=== PATIENT | female | born 1955 | race Caucasian/White ===

== ENCOUNTER → 2023-05-19 14:00 | Outpatient (REF) | payer MEDICARE, OTHER, SELFPAY | LOC: HWRAD 14:00 | PROVIDERS: ATTENDING PHYSICIAN Obstetrics & Gynecology; FAMILY PHYSICIAN Physician Assistant | DX: R10.2 Pelvic and perineal pain (principal) | CPT/HCPCS: 76830; 76856 ==

== ENCOUNTER 2023-09-24 17:21 | Emergency (ER) | payer MEDICARE, OTHER, SELFPAY ==
[2023-09-24] VITALS (7 sets, daily range): BP systolic 134–168; BP diastolic 80–129; BMI 22.5
--- NOTE | 2023-09-24 19:27 | ED.GENMED ---
History of Present Illness
General
Chief Complaint: Cough
Source: patient
Exam Limitations: none
Time Seen by Provider: 09/24/23 18:42
Nursing documentation reviewed up to this point in time: agreed with
Travel History
Have you had any contact with someone who has COVID-19?: No
Do you have any symptoms of coronavirus? Fever > 100 degrees, chills, cough, shortness of breath, sore throat, loss of taste or smell, muscle aches, or headache?: No
History of Present Illness
History of Present Illness:
68 y/o F with h/o bronchiectasis, HTN, hld
followed by dr. luna from pul
says that about 5 weeks ago started not feeling well, coughing with mucus, fatigue
she ended up garo to her pcp on 09/07 and was prescrbied augmentin and steroid taper
she was confused by the steorid taper which was supposed to be 40 x 3, 30 x 3, etc
she got it corrected and then finished it last week
within this time frame the past 2 weeks, she also saw her pulmonolgoist dr. luna who tested her sputum and she grew out pseudomonas
she was treated with tobramycin INH bid x 10 days
she completed that course and still the past 2-3 days having junky cough and not feeling well
called her pulm who added another course of tobra but wanted her to have CXR
she had the CXR today and was called within afew hours saying she had pneumonia and to come to the hospital
now she feels some chills
she feels shortness of breath but denies chest pain
Past History
Past History
ED Past Medical History: GERD and Other (She status post uterine and bladder prolapse, neck pain with recent epidural, hypertension)
ED Past Surgical History: None
Social History
Tobacco: Non-smoker
Alcohol: None
Drug: None
Personal:
Living: with family
Employment: Employed
Family History
Family History: Negative Early CAD or Sudden
Review of Systems
Review of Systems
Allergies reviewed?: Yes
All Other Systems: Not applicable
Phy Exam
Physical Exam
Physical Exam:
GENERAL: Alert , in no apparent distress no respiratory distress
EYE: pupils equal and reactive
NECK: Supple
ENT: o/p clr, mmm.
CARDIAC: Regular rate and rhythm .
LUNGS: rhonchi throughout; no wheezing, no tachypnea, no resp distress;
ABDOMEN: Soft, without focal tenderness, no r/g, no cvat, normal bowel sounds
NEUROLOGICAL: Alert and oriented, no focal neuro deficits
SKIN: Warm and dry, skin intact.
MUSCULOSKELETAL: No edema, well perfused. neg michelle's sign
PSYCH: Normal and appropriate interaction.
Course
Orders/Labs/Results
Orders:
Orders
09/24/23 19:34
Complete Blood Count/With Diff Urgent
Comprehensive Metabolic Panel Urgent
Lactic Acid Q4H
Comment: CANCEL 2nd LACTIC ACID IF 1st LACTIC ACID IS LESS THAN 2
Blood Culture Q30M
ADONAY Source: Blood/Venous
Specimen Description:
Blood Culture Q30M
ADONAY Source: Blood/Venous
Specimen Description:
09/24/23 19:55
Electrocardiogram (*1) Urgent
Reason for Study: QTc Monitoring
EKG- Treatment ONCE
09/24/23 21:13
LevoFLOXacin [Levaquin] 750 mg PO NOW STA
09/24/23 23:04
Respiratory Culture/Gram Stain Urgent
ADONAY Source: Sputum - Induced
Specimen Description:
Date Specimen was Collected: 09/24/23
Time Specimen was Collected: 19:22
Abnormal Lab Results
09/24/23
19:34
WBC 4.6 L 10^3/uL
(4.8-10.8)
RBC 4.06 L 10^6/uL
(4.20-5.40)
Hct 36.3 L %
(37.0-47.0)
Monocytes % 9.5 H %
(1.7-9.3)
Glucose 112 H mg/dl
(70-99)
09/24/23 19:34
09/24/23 19:34
Vital Signs
Initial and Last Documented VS:
Initial Vital Signs
Temp Pulse Resp BP Pulse Ox
99.2 F 85 18 134/80 96
09/24/23 17:24 09/24/23 17:24 09/24/23 17:24 09/24/23 17:24 09/24/23 17:24
Last Documented Vital Signs
Temp Pulse Resp BP Pulse Ox
99.4 F 65 26 161/91 96
09/24/23 22:20 09/24/23 22:20 09/24/23 22:20 09/24/23 23:00 09/24/23 22:51
MDM/Problems Addressed
Differential Diagnosis Includes:
Pneumonia, bronchiectasis, reactive airway,
MDM/Problems Addressed:
68-year-old female with a history of bronchiectasis followed by pulmonary said 4 to 5 weeks of a cough worsening than her baseline. She was treated with Augmentin and a prednisone taper initially by her primary and then out 2 weeks ago saw her
van owner operator who put her on tobramycin inhaled twice daily x 10 days after she had a sputum culture that was positive for Pseudomonas. Patient completed the course of tobra but still feels sick and had some chills so she got outpatient CXR today
and it shows subtle pna
pt overall doesn't feel sob more than usual and other than feeling fatigued doesn't feel overly ill
no hemotpysis
on exam initial temp borderline, repeat normal
normal room air pulse ox
rhonchi throughout
no resp distress
no vomiting/diarrhea
wbc normal
cmp normal
sputum culture attempted but pt difficult to obtain
will try leukens
d/w dr. torres telecommunications cable jointer for dr. luna
who recommended levaquin if pt can tolerate 750 mg daily x 10 days
pt's qtc ok
d/w pharmacy, only drug interaction is ibuprofen and calcium which we can hold
offered admission
pt wouud like to go home
attempt sputum culture and d/dc
*Critical Care Note
Total Time (30-74mins, 75-104mins- exclusive of procedures): Not Applicable
ED Attending Note
-
Portions of this chart may have been created with voice recognition software.� Occasional wrong word or��sound alike� substitutions may have occurred due to the inherent limitations of voice recognition software.
Discharge Plan
Departure
Patient Disposition: Home (Routine Discharge)
Date of Disposition: 09/24/23
Time of Disposition: 22:00
Patient with high blood pressure during this ER visit?: No
Condition: Fair
Covid-19: Not Applicable
Discharge Problem:
Pneumonia
Instructions: Pneumonia, Adult (DC)
Prescriptions:
New
levofloxacin 750 mg tablet
750 mg PO DAILY Qty: 10 0RF
No Action
levothyroxine 50 mcg Tablet
50 mcg PO DAILY
pantoprazole 40 mg Tablet,Delayed Release (Dr/Ec)
40 mg PO DAILY
lisinopril 10 mg Tablet
10 mg PO DAILY
ibuprofen 200 mg Tablet
400 mg PO TIDPRN PRN (Reason: mild pain)
budesonide 0.5 mg/2 mL Suspension For Nebulization
0.5 mg INHALATION .R NOON
raloxifene 60 mg Tablet
60 mg PO DAILY
azelastine 137 mcg (0.1 %) Aerosol,[place]
1 spray INTRANASAL HS
albuterol sulfate 90 mcg/actuation Hfa Aerosol Inhaler
1 puff INHALATION R HSPRN PRN (Reason: sob)
fluticasone propionate 50 mcg/actuation [place],Suspension
2 spray INTRANASAL DAILY
fluticasone propionate [Flovent HFA] 110 mcg/actuation Hfa Aerosol Inhaler
1 puff INHALATION R BID
carboxymethylcellulose sodium [Refresh] 1 % Drops, Liquid Gel
1 drp BOTH EYES HS
duloxetine 20 mg capsule,delayed release(DR/EC)
20 mg PO BID
levocetirizine [Xyzal] 5 mg Tablet
5 mg PO HS
omega 5-yqz-vgv-fish oil [Fish Oil] 1,000 mg (120 mg-180 mg) Capsule
1 cap PO DAILY
tobramycin with nebulizer 300 mg/5 mL Solution For Nebulization
300 mg INHALATION R BID
Patient Comments:
09/24/2023, prescribed for 10 days; per pt., her PCP just increased duration by another 10 days starting today.
Calcium + D
1 tab PO DAILY
Patient Comments:
09/24/2023, 315 mg of Calcium and 200 units of vitamin D.
Vitamin C
2 tab PO DAILY
cholecalciferol (vitamin D3)
2 tab PO DAILY
albuterol sulfate 2.5 mg /3 mL (0.083 %) Solution For Nebulization
2.5 mg INHALATION R BIDPRN PRN (Reason: sob)
Referrals:
UNKNOWN - PT DOES,NOT KNOW [Family Provider] -
Activity Restrictions/Additional Instructions:
Grader Tender on-call for Dr. luna recommended that you take Levaquin 750 mg once a day for 10 days. We highly encourage you to follow-up with the van owner operator next week. Should you get any worsening symptoms like higher fevers, shortness of
breath, chest pain, severe fatigue etc. return to the ER for admission. You need to avoid exercise and strenuous activity or lifting suddenly because Levaquin as a side effect can potentially cause tendon rupture spontaneously. It is only while
you are on the medication. Also the pharmacist recommended that you hold the calcium that you take and avoid ibuprofen while you are on this medication for now.
Interventions
Interventions:
*Risk Screen - Suicide Last Done: 09/24/23 19:50
*General Assessment Last Done: 09/24/23 19:50
*Neglect/Abuse Screening Last Done: 09/24/23 19:50
ED- Fall Risk Assessment Last Done: 09/24/23 18:58
*ED COVID-19 Vaccine History Last Done: 09/24/23 19:50
*Nursing Disposition Last Done: 09/24/23 23:17
ED- Pulmonary Assessment Last Done: 09/24/23 19:50
Discharge Date and Time
Discharge Date/Time: 09/24/23 23:17
Print Language: KYRGYZ
[2023-09-24 19:44] LABS: % Basophils 0.4 % (0-2); % Eosinophils 2.4 % (0-6); % Immature Granulocytes 0.4 % (0-0.5); % Lymphocytes 35.1 % (20.5-51.1); % Monocytes 9.5 % (1.7-9.3); % Neutrophils 52.2 % (42.2-75.2); Absolute Eosinophils 0.1 10^3/uL (0-0.7); Absolute Lymphocytes 1.6 10^3/uL (1.2-3.4); Absolute Monocytes 0.4 10^3/uL (0.1-0.6); Absolute Neutrophils 2.4 10^3/uL (1.4-6.5); Hematocrit 36.3 % (37.0-47.0); Hemoglobin 12.3 g/dL (12.0-16.0); Mean Corp Hgb Conc. 33.9 g/dL (33.0-37.0); Mean Corpuscular Hgb 30.3 pg (27.0-31.0); Mean Corpuscular Volume 89.4 fL (81.0-99.0); Mean Platelet Volume 9.2 fL (7.4-10.4); Nucleated Red Blood Cells % 0 %; Platelet Count 277 10^3/uL (130-400); Red Blood Cell Count 4.06 10^6/uL (4.20-5.40); Red Cell Dist. Width 13.8 % (11.5-14.5); White Blood Cell Count 4.6 10^3/uL (4.8-10.8)
[2023-09-24 19:59] LABS: ALT (SGPT) 22 U/L (0-35); AST (SGOT) 26 U/L (14-36); Alkaline Phosphatase 90 U/L (38-126); Blood Urea Nitrogen 13 mg/dl (7-17); Calcium 9.7 mg/dl (8.4-10.2); Carbon Dioxide 26 mmol/L (22-30); Chloride 105 mmol/L (98-107); Estimated Creatinine Clearance 64 ml/min; Glucose 112 mg/dl (70-99); Potassium 3.9 mmol/L (3.5-5.1); Sodium 137 mmol/L (135-145); Total Bilirubin 0.4 mg/dl (0.2-1.3); Total Protein 6.6 g/dl (6.3-8.2); eGFR > 60.00
[2023-09-24] MEDS: LEVAQUIN 750 MG PO (22:10)
== END 2023-09-24 23:17 | disposition home or self-care (01) ==
LOC: EMR 17:21
PROVIDERS: Physician Assistant; EMERGENCY PHYSICIAN Emergency Medicine
DX: J18.9 Pneumonia, unspecified organism (principal); I10 Essential (primary) hypertension; E78.5 Hyperlipidemia, unspecified; K21.9 Gastro-esophageal reflux disease without esophagitis; E03.9 Hypothyroidism, unspecified; F41.9 Anxiety disorder, unspecified; F32.A Depression, unspecified; Z88.1 Allergy status to other antibiotic agents; Z88.2 Allergy status to sulfonamides
CPT/HCPCS: 99283; 71046; 80053; 83605; 85025; 87040; 87070; 87205; 93005

== ENCOUNTER → 2023-10-21 14:07 | Outpatient (REF) | payer MEDICARE, OTHER, SELFPAY | LOC: HWRAD 14:07 | PROVIDERS: ATTENDING PHYSICIAN Nurse Practitioner Family; FAMILY PHYSICIAN Physician Assistant | DX: Z87.01 Personal history of pneumonia (recurrent) (principal) | CPT/HCPCS: 71046 ==

== ENCOUNTER → 2024-06-09 13:54 | Outpatient (REF) | payer MEDICARE, OTHER, SELFPAY | LOC: HWRAD 13:54 | PROVIDERS: ATTENDING PHYSICIAN Physician Assistant | DX: J40 Bronchitis, not specified as acute or chronic (principal) | CPT/HCPCS: 71046 ==

== ENCOUNTER → 2024-12-09 11:20 | Outpatient (REF) | payer MEDICARE, OTHER, SELFPAY | LOC: HWRAD 11:20 | PROVIDERS: ATTENDING PHYSICIAN Physician Assistant; REFERRING PHYSICIAN Internal Medicine Critical Care Medicine | DX: J06.9 Acute upper respiratory infection, unspecified (principal) | CPT/HCPCS: 71046 ==

== ENCOUNTER 2025-01-05 20:20 | Emergency (ER) | payer MEDICARE, OTHER, SELFPAY ==
[2025-01-05 20:26] VITALS: BP 142/89
[2025-01-05 20:57] LABS: Hematocrit 41.2 % (37.0-47.0); Hemoglobin 13.7 g/dL (12.0-16.0); Mean Corp Hgb Conc. 33.3 g/dL (33.0-37.0); Mean Corpuscular Volume 92.6 fL (81.0-99.0); Nucleated Red Blood Cells % 0 %; Platelet Count 223 10^3/uL (130-400); Red Cell Dist. Width 13.4 % (11.5-14.5)
[2025-01-05 21:04] LABS: Urine Character Clear (Clear)
[2025-01-05 21:10] LABS: ALT (SGPT) 25 U/L (0-35); AST (SGOT) 30 U/L (14-36); Albumin 4.3 g/dl (3.5-5.0); Alkaline Phosphatase 78 U/L (38-126); Blood Urea Nitrogen 12 mg/dl (7-17); Calcium 9.0 mg/dl (8.4-10.2); Carbon Dioxide 30 mmol/L (22-30); Chloride 103 mmol/L (98-107); Glucose 94 mg/dl (70-99); Lipase 33 U/L (23-300); Potassium 3.8 mmol/L (3.5-5.1); Sodium 137 mmol/L (135-145); Total Protein 6.8 g/dl (6.3-8.2); eGFR > 60.00
[2025-01-05 22:11] LABS: Urine Red Blood Cell 0-2 /HPF (0-2); Urine Squamous Cell >30 /LPF (Few)
[2025-01-05] MEDS: OMNIPAQUE 50 ML PO (23:45)
[2025-01-05] MEDS: ZOFRAN 4 MG IV (23:51)
[2025-01-05 23:54] VITALS: BP 150/85
[2025-01-06] VITALS: BP 137/78
--- NOTE | 2025-01-06 03:05 | ED.GENMED ---
History of Present Illness
<Ken De León Jr., PA-C - Last Filed: 01/06/25 03:18>
General
Chief Complaint: Abdominal Pain
Source: patient
Exam Limitations: none
Time Seen by Provider: 01/05/25 23:06
Nursing documentation reviewed up to this point in time: agreed with
History of Present Illness
History of Present Illness:
70-year-old female presenting to the emergency department today with concerns of vague abdominal pain associated diarrhea. Had a CT scan earlier in the day that showed colitis. She was recently on antibiotics for UTI. Denies any fevers chest pain
shortness of breath.
Past History
<Ken De León Jr., PA-C - Last Filed: 01/06/25 03:18>
Past History
ED Past Medical History: GERD and Other (She status post uterine and bladder prolapse, neck pain with recent epidural, hypertension)
ED Past Surgical History: None
Social History
Tobacco: Non-smoker
Alcohol: None
Drug: None
Personal:
Living: with family
Employment: Employed
Family History
Family History: Negative Early CAD or Sudden
Review of Systems
<Ken De León Jr., PA-C - Last Filed: 01/06/25 03:18>
Review of Systems
Allergies reviewed?: Yes
All Other Systems: ROS reviewed and negative except as documented in HPI and ROS
Phy Exam
<Ken De León Jr., PA-C - Last Filed: 01/06/25 03:18>
Physical Exam
Physical Exam:
GENERAL: Alert , in no apparent distress
EYE: pupils equal and reactive
NECK: Supple, no significant adenopathy.
ENT: o/p clr, mmm.
CARDIAC: Regular rate and rhythm .
LUNGS: Clear breath sounds bilaterally, no acute respiratory distress, no wheezes/rales/rhonchi
ABDOMEN: vague abdominal pain to palpation
NEUROLOGICAL: Alert and oriented, no focal neuro deficits
SKIN: Warm and dry, skin intact.
MUSCULOSKELETAL: No edema, well perfused.
PSYCH: Normal and appropriate interaction.
Course
<Ken De León Jr., LIVIA-Eileen - Last Filed: 01/06/25 03:18>
Orders/Labs/Results
Orders:
Orders
01/05/25 20:28
IV Insert/Care/Rem.- Treatment PRN
Straight cath- Treatment ONCE
01/05/25 20:34
Urinalysis Reflex To Culture Urgent
Date Specimen was Collected: 01/05/25
Time Specimen was Collected: 20:28
Urine Microscopic Reflex Cult Urgent
Urine Culture Urgent
ADONAY Source: U
Specimen Description:
Date Specimen was Collected: 01/05/25
Time Specimen was Collected: 20:28
01/05/25 20:37
Complete Blood Count/With Diff Urgent
Comprehensive Metabolic Panel Urgent
Lipase Urgent
01/05/25 23:25
C DIFF [C difficile Antigen & Toxins] Urgent
ADONAY Source: Feces/Stool
Specimen Description:
Date Specimen was Collected: 01/06/25
Time Specimen was Collected: 03:16
Stool Culture Urgent
ADONAY Source: Feces/Stool
Specimen Description:
Date Specimen was Collected: 01/06/25
Time Specimen was Collected: 03:16
Iohexol [Omnipaque] See Protocol PO NOW STA
01/05/25 23:50
Ondansetron Injectable [Zofran] 4 mg .ROUTE .STK-MED ONE
Ondansetron Injectable [Zofran] 4 mg IV NOW STA
01/06/25
CT Abd/Pel (IV only)-DH only Urgent
Reason For Exam: abd pain
Abnormal Lab Results
01/05/25 01/05/25
20:34 20:37
Absolute Monos (auto) 0.7 H 10^3/uL
(0.1-0.6)
Lymphocytes % 16.8 L %
(20.5-51.1)
Leukocyte Esterase Rfl 1+ A
(Negative)
Urine WBC (Reflex) 11-15 A /HPF
(0-5)
Urine Bacteria (Reflex) Few A
(Negative)
01/05/25 20:37
01/05/25 20:37
Vital Signs
Initial and Last Documented VS:
Initial Vital Signs
Temp Pulse Resp BP Pulse Ox
97.9 F 70 18 142/89 97
01/05/25 20:26 01/05/25 20:26 01/05/25 20:26 01/05/25 20:26 01/05/25 20:26
Last Documented Vital Signs
Temp Pulse Resp BP Pulse Ox
97.9 F 70 18 137/78 97
01/05/25 20:26 01/05/25 20:26 01/05/25 20:26 01/06/25 00:00 01/06/25 03:06
<Titi Mcclelland PA-C - Last Filed: 01/06/25 07:46>
Orders/Labs/Results
Orders:
Orders
01/05/25 20:28
IV Insert/Care/Rem.- Treatment PRN
Straight cath- Treatment ONCE
01/05/25 20:34
Urinalysis Reflex To Culture Urgent
Date Specimen was Collected: 01/05/25
Time Specimen was Collected: 20:28
Urine Microscopic Reflex Cult Urgent
Urine Culture Urgent
ADONAY Source: U
Specimen Description:
Date Specimen was Collected: 01/05/25
Time Specimen was Collected: 20:28
01/05/25 20:37
Complete Blood Count/With Diff Urgent
Comprehensive Metabolic Panel Urgent
Lipase Urgent
01/05/25 23:25
C DIFF [C difficile Antigen & Toxins] Urgent
ADONAY Source: Feces/Stool
Specimen Description:
Date Specimen was Collected: 01/06/25
Time Specimen was Collected: 03:16
Stool Culture Urgent
ADONAY Source: Feces/Stool
Specimen Description:
Date Specimen was Collected: 01/06/25
Time Specimen was Collected: 03:16
Iohexol [Omnipaque] See Protocol PO NOW STA
01/05/25 23:50
Ondansetron Injectable [Zofran] 4 mg .ROUTE .STK-MED ONE
Ondansetron Injectable [Zofran] 4 mg IV NOW STA
01/06/25
CT Abd/Pel (IV only)-DH only Urgent
Reason For Exam: abd pain
Abnormal Lab Results
01/05/25 01/05/25
20:34 20:37
Absolute Monos (auto) 0.7 H 10^3/uL
(0.1-0.6)
Lymphocytes % 16.8 L %
(20.5-51.1)
Leukocyte Esterase Rfl 1+ A
(Negative)
Urine WBC (Reflex) 11-15 A /HPF
(0-5)
Urine Bacteria (Reflex) Few A
(Negative)
01/05/25 20:37
01/05/25 20:37
Vital Signs
Initial and Last Documented VS:
Initial Vital Signs
Temp Pulse Resp BP Pulse Ox
97.9 F 70 18 142/89 97
01/05/25 20:26 01/05/25 20:26 01/05/25 20:26 01/05/25 20:26 01/05/25 20:26
Last Documented Vital Signs
Temp Pulse Resp BP Pulse Ox
97.9 F 70 18 137/78 97
01/05/25 20:26 01/05/25 20:26 01/05/25 20:26 01/06/25 00:00 01/06/25 03:06
<Ken De León Jr., PA-C - Last Filed: 01/06/25 03:18>
MDM/Problems Addressed
MDM/Problems Addressed:
70-year-old female presenting to the emergency department today with concerns of abdominal pain with associated diarrhea since yesterday. Here she had moderate colitis. She was recently on antibiotics raising the concern for C. difficile. No
white count no other emergent findings on labs. CT scan showing moderate colitis no signs of complications. Urine culture was able to be collected but patient stable for discharge at this time will be contacted if any abnormalities result.
<Ken De León Jr., PA-C - Last Filed: 01/06/25 03:18>
*Pulse Oximetry
SaO2: 97
Oxygen Mode of Delivery: Room air
<Titi Mcclelland PA-C - Last Filed: 01/06/25 07:46>
*Pulse Oximetry
Patient hypoxic: no
*Critical Care Note
Total Time (30-74mins, 75-104mins- exclusive of procedures): Not Applicable
<Titi Mcclelland PA-C - Last Filed: 01/06/25 07:46>
Update Note
Update Note:
7:45 AM January 06, 2025: Received notification from lab that patient C. difficile test came back positive. I contacted the patient via telephone and discussed these results with her. She was prescribed a new antibiotic for a urinary tract
infection yesterday. Advised patient discontinue the antibiotic at present time. Prescription for Dificid was sent to patient's pharmacy. I urged her to contact primary care provider's office to help with follow-up as well as discussed return
precautions to ER
ED Attending Note
<ROWENA Esquivel Jr. Last Filed: 01/06/25 03:18>
-
Portions of this chart may have been created with voice recognition software.� Occasional wrong word or��sound alike� substitutions may have occurred due to the inherent limitations of voice recognition software.
Discharge Plan
Departure
Patient Disposition: Home (Routine Discharge)
Date of Disposition: 01/06/25
Time of Disposition: 03:16
Patient with high blood pressure during this ER visit?: No
Condition: Good
Covid-19: Not Applicable
Discharge Problem:
Colitis
Instructions: Colitis (DC)
Prescriptions:
New
fidaxomicin [Dificid] 200 mg tablet
200 mg PO Q12H 10 Days Qty: 20 0RF
No Action
levothyroxine 50 mcg Tablet
50 mcg PO DAILY
pantoprazole 40 mg Tablet,Delayed Release (Dr/Ec)
40 mg PO DAILY
lisinopril 10 mg Tablet
10 mg PO DAILY
ibuprofen 200 mg Tablet
400 mg PO TIDPRN PRN (Reason: mild pain)
budesonide 0.5 mg/2 mL Suspension For Nebulization
0.5 mg INHALATION .R NOON
raloxifene 60 mg Tablet
60 mg PO DAILY
azelastine 137 mcg (0.1 %) Aerosol,[place]
1 spray INTRANASAL HS
albuterol sulfate 90 mcg/actuation Hfa Aerosol Inhaler
1 puff INHALATION R HSPRN PRN (Reason: sob)
fluticasone propionate 50 mcg/actuation [place],Suspension
2 spray INTRANASAL DAILY
fluticasone propionate [Flovent HFA] 110 mcg/actuation Hfa Aerosol Inhaler
1 puff INHALATION R BID
carboxymethylcellulose sodium [Refresh] 1 % Drops, Liquid Gel
1 drp BOTH EYES HS
duloxetine 20 mg capsule,delayed release(DR/EC)
20 mg PO BID
levocetirizine [Xyzal] 5 mg Tablet
5 mg PO HS
omega 2-gsx-dfz-fish oil [Fish Oil] 1,000 mg (120 mg-180 mg) Capsule
1 cap PO DAILY
tobramycin with nebulizer 300 mg/5 mL Solution For Nebulization
300 mg INHALATION R BID
Patient Comments:
09/24/2023, prescribed for 10 days; per pt., her PCP just increased duration by another 10 days starting today.
Calcium + D
1 tab PO DAILY
Patient Comments:
09/24/2023, 315 mg of Calcium and 200 units of vitamin D.
Vitamin C
2 tab PO DAILY
cholecalciferol (vitamin D3)
2 tab PO DAILY
albuterol sulfate 2.5 mg /3 mL (0.083 %) Solution For Nebulization
2.5 mg INHALATION R BIDPRN PRN (Reason: sob)
levofloxacin 750 mg tablet
750 mg PO DAILY Qty: 10 0RF
Referrals:
Pamela Blackwood PA-C [Family Provider]
Activity Restrictions/Additional Instructions:
You came to the emergency department today with concerns of abdominal pain you are found to have colitis. When urine cultures result if there is abnormality you will be contacted. Otherwise follow-up closely with your primary care doctor. Return
for any worsening, new or concerning symptoms.
Interventions
Interventions:
*Risk Screen - Suicide Last Done: 01/05/25 20:26
*General Assessment Last Done: 01/05/25 23:58
*Neglect/Abuse Screening Last Done: 01/05/25 23:58
*ED- Fall Risk Assessment Last Done: 01/05/25 23:58
*ED COVID-19 Vaccine History Last Done: 01/05/25 23:58
*Nursing Disposition Last Done: 01/06/25 04:07
[facility]-Npssoptwae Assessment Last Done: 01/05/25 23:57
Discharge Date and Time
Discharge Date/Time: 01/06/25 04:08
Print Language: ITALIAN
== END 2025-01-06 04:08 | disposition home or self-care (01) ==
LOC: EMR 20:20
PROVIDERS: Emergency Medicine; EMERGENCY PHYSICIAN Student in an Organized Health Care Education/Training Program; FAMILY PHYSICIAN Physician Assistant
DX: A04.72 Enterocolitis due to Clostridium difficile, not specified as recurrent (principal); I10 Essential (primary) hypertension; K21.9 Gastro-esophageal reflux disease without esophagitis
CPT/HCPCS: 99284; 96374; 74176; 74177; 80053; 81003; 81015; 83690; 85025; 87045; 87046; 87086; 87324; 87427; 87449; Q9967

== ENCOUNTER 2025-01-23 16:42 | Emergency (ER) | payer MEDICARE, OTHER, SELFPAY ==
[2025-01-23 16:56] VITALS: BP 158/89
[2025-01-23 17:19] LABS: Hematocrit 41.4 % (37.0-47.0); Hemoglobin 13.4 g/dL (12.0-16.0); Mean Corp Hgb Conc. 32.4 g/dL (33.0-37.0); Mean Corpuscular Volume 94.7 fL (81.0-99.0); Nucleated Red Blood Cells % 0 %; Platelet Count 251 10^3/uL (130-400); Red Cell Dist. Width 12.8 % (11.5-14.5)
[2025-01-23 17:33] LABS: ALT (SGPT) 19 U/L (0-35); AST (SGOT) 25 U/L (14-36); Albumin 4.5 g/dl (3.5-5.0); Alkaline Phosphatase 90 U/L (38-126); Blood Urea Nitrogen 14 mg/dl (7-17); Calcium 9.4 mg/dl (8.4-10.2); Carbon Dioxide 30 mmol/L (22-30); Chloride 102 mmol/L (98-107); Glucose 88 mg/dl (70-99); Potassium 4.2 mmol/L (3.5-5.1); Sodium 138 mmol/L (135-145); Total Protein 7.1 g/dl (6.3-8.2); eGFR > 60.00
[2025-01-23 17:43] VITALS: BP 122/73; BMI 24.3
[2025-01-23 17:45] LABS: Troponin I < 0.012 ng/ml
[2025-01-23 18:00] VITALS: BP 125/70
--- NOTE | 2025-01-23 18:06 | ED.GENMED ---
History of Present Illness
<Honey Gambino PA-C - Last Filed: 01/24/25 03:41>
General
Chief Complaint: Chest Pain
Source: patient
Exam Limitations: none
Time Seen by Provider: 01/23/25 17:41
Nursing documentation reviewed up to this point in time: agreed with
History of Present Illness
History of Present Illness:
Patient is a 70-year-old female with history of hypertension, GERD who presents to the emergency department with chest discomfort. Patient describes a few months of 'esophageal burning' and was recently able to get into see her GI doctor who does
recommend endoscopy however they do not have any current availability. She states that over the past 2 weeks she has also been experiencing a tightness pain in her lower sternal region which radiates into her back. She also notices some
intermittent radiation into her left chest. She denies any clear exertional or pleuritic component symptoms. Not clearly postprandial. She does report that symptoms are somewhat worse with certain bending motions. She does not describe this as a
'tearing'. No associated fever, shortness of breath, nausea/vomiting.
She denies any recent travel or recent surgery.
Patient reports somewhat longstanding history of GERD and takes pantoprazole twice daily.
She was seen by her PCP this morning who recommended further evaluation in the emergency department possible CT scan of her chest.
Past History
<Honey Gambino PA-C - Last Filed: 01/24/25 03:41>
Past History
ED Past Medical History: GERD and Other (She status post uterine and bladder prolapse, neck pain with recent epidural, hypertension)
ED Past Surgical History: None
Social History
Tobacco: Non-smoker
Alcohol: None
Drug: None
Personal:
Living: with family
Employment: Employed
Family History
Family History: Negative Early CAD or Sudden
Review of Systems
<Honey Gambino PA-C - Last Filed: 01/24/25 03:41>
Review of Systems
Allergies reviewed?: Yes
All Other Systems: ROS reviewed and negative except as documented in HPI and ROS
Phy Exam
<Honey Gambino PA-C - Last Filed: 01/24/25 03:41>
Physical Exam
Physical Exam:
Vitals: Hypertensive, otherwise vital signs stable. Afebrile
General: Patient is well appearing, no acute distress. Nontoxic appearing
Skin: Warm and dry, no rashes or lesions
Head: Normocephalic, atraumatic
Eyes: Sclera nonicteric. EOMs intact. No nystagmus.
Throat: Protecting airway
Neck: Normal ROM, no cervical spine tenderness, no meningismus
Cardiac: Regular rate and rhythm, no murmurs. No reproducible chest wall tenderness. 2+ palpable radial pulses bilaterally
Pulm: Normal respiratory effort, no wheezes, rales, rhonchi heard on exam
Abdomen: Abdomen soft and nontender.
Extremities: No evidence of cyanosis or edema. 2+ palpable DP pulses bilaterally
Neuro: AAOx3. Grossly intact.
Psychiatric: Normal affect.
Scores
<Honey Gambino PA-C - Last Filed: 01/24/25 03:41>
Heart Score for Chest Pain Patients
STEMI patient?: Not applicable
Course
<Honey Gambino PA-C - Last Filed: 01/24/25 03:41>
Orders/Labs/Results
Orders:
Orders
01/23/25 16:44
Electrocardiogram (*1) Urgent
Reason for Study: Chest Pain
EKG- Treatment ONCE
01/23/25 17:08
CMP [Comprehensive Metabolic Panel] Urgent
Complete Blood Count/With Diff Urgent
Lipase Urgent
Troponin I Urgent
01/23/25 18:00
Mag Hydrox/Al Hydrox/Simeth [Maalox] 30 ml Phenobarb/Hyoscy/Atropine/Scop [] 10 ml Viscous Lidocaine 2% [Xylocaine Viscous Cup] 10 ml PO NOW
01/23/25 18:10
Mag Hydrox/Al Hydrox/Simeth [Maalox] 30 ml .ROUTE .STK-MED ONE
Phenobarb/Hyoscy/Atropine/Scop [] 10 ml .ROUTE .STK-MED ONE
Viscous Lidocaine 2% [Xylocaine Viscous Cup] 15 ml .ROUTE .STK-MED ONE
01/23/25 18:18
Add On- LAB Urgent
Tests Added?: lipase
01/23/25 18:32
CT Chest Angio W/wo Iv Contras Urgent
Comment:
Reason For Exam: chest pain radiating to back
01/23/25 20:10
Electrocardiogram (*1) Urgent
Reason for Study: Chest Pain
EKG- Treatment ONCE
01/23/25 20:47
Troponin I Urgent
01/23/25 21:34
Sucralfate [Carafate] 1 gram .ROUTE .STK-MED ONE
01/23/25 21:35
Sucralfate [Carafate] 1 gram PO NOW STA
Abnormal Lab Results
01/23/25
17:08
WBC 4.4 L 10^3/uL
(4.8-10.8)
MCHC 32.4 L g/dL
(33.0-37.0)
01/23/25 17:08
01/23/25 17:08
Vital Signs
Initial and Last Documented VS:
Initial Vital Signs
Temp Pulse Resp BP Pulse Ox
97.7 F 71 18 158/89 99
01/23/25 16:56 01/23/25 16:56 01/23/25 16:56 01/23/25 16:56 01/23/25 16:56
Last Documented Vital Signs
Temp Pulse Resp BP Pulse Ox
97.7 F 68 17 138/82 97
01/23/25 16:56 01/23/25 21:30 01/23/25 21:30 01/23/25 21:00 01/23/25 21:30
<Romeo Vargas MD - Last Filed: 01/23/25 18:42>
Orders/Labs/Results
Orders:
Orders
01/23/25 16:44
Electrocardiogram (*1) Urgent
Reason for Study: Chest Pain
EKG- Treatment ONCE
01/23/25 17:08
CMP [Comprehensive Metabolic Panel] Urgent
Complete Blood Count/With Diff Urgent
Lipase Urgent
Troponin I Urgent
01/23/25 18:00
Mag Hydrox/Al Hydrox/Simeth [Maalox] 30 ml Phenobarb/Hyoscy/Atropine/Scop [] 10 ml Viscous Lidocaine 2% [Xylocaine Viscous Cup] 10 ml PO NOW
01/23/25 18:10
Mag Hydrox/Al Hydrox/Simeth [Maalox] 30 ml .ROUTE .STK-MED ONE
Phenobarb/Hyoscy/Atropine/Scop [] 10 ml .ROUTE .STK-MED ONE
Viscous Lidocaine 2% [Xylocaine Viscous Cup] 15 ml .ROUTE .STK-MED ONE
01/23/25 18:18
Add On- LAB Urgent
Tests Added?: lipase
01/23/25 18:32
CT Chest Angio W/wo Iv Contras Urgent
Comment:
Reason For Exam: chest pain radiating to back
01/23/25 20:10
Electrocardiogram (*1) Urgent
Reason for Study: Chest Pain
EKG- Treatment ONCE
01/23/25 20:47
Troponin I Urgent
01/23/25 21:34
Sucralfate [Carafate] 1 gram .ROUTE .STK-MED ONE
01/23/25 21:35
Sucralfate [Carafate] 1 gram PO NOW STA
Abnormal Lab Results
01/23/25
17:08
WBC 4.4 L 10^3/uL
(4.8-10.8)
MCHC 32.4 L g/dL
(33.0-37.0)
01/23/25 17:08
01/23/25 17:08
Vital Signs
Initial and Last Documented VS:
Initial Vital Signs
Temp Pulse Resp BP Pulse Ox
97.7 F 71 18 158/89 99
01/23/25 16:56 01/23/25 16:56 01/23/25 16:56 01/23/25 16:56 01/23/25 16:56
Last Documented Vital Signs
Temp Pulse Resp BP Pulse Ox
97.7 F 68 17 138/82 97
01/23/25 16:56 01/23/25 21:30 01/23/25 21:30 01/23/25 21:00 01/23/25 21:30
<Honey Gambino PA-C - Last Filed: 01/24/25 03:41>
MDM/Problems Addressed
Differential Diagnosis Includes:
Not limited to: GERD, gastritis, pancreatitis, muscle strain/spasm, acute coronary syndrome, less likely aortic dissection, etc.
MDM/Problems Addressed:
70-year-old female presents with several weeks of substernal chest pain radiating to the back, described as a burning / tightness sensation. She has a known history of GERD. Symptoms are not exertional, and she denies associated shortness of breath,
palpitations, or syncope.
Vital signs are stable throughout her ED stay. Physical exam is unremarkable, with a benign abdomen and normal cardiopulmonary findings.
Given her age and symptom location, both cardiac and gastrointestinal etiologies were considered. ED workup included serial cardiac enzymes, ECGs, and basic labs, all of which were within normal limits. A CTA chest was obtained to evaluate for
emergent vascular causes which was negative for dissection or PE but did note mild bronchiolitis - which I doubt is contributing to patients presenting symptoms.
Cardiac workup negative. Given her stable abdominal exam and lack of clinical signs concerning for intra-abdominal infection or obstruction, no further abdominal imaging was pursued. Symptoms are most consistent with a GI source, such as acid reflux
or gastritis.
I contacted the GI clinic to help expedite outpatient follow-up. She remains hemodynamically stable and is appropriate for discharge with supportive care including continuation of her PPI. Return precautions reviewed in detail. Patient is agreeable
with the plan.
Chronic conditions affecting care:
Hypertension, GERD
Acute Exacerbation and/or Progression of Chronic Illness:
N/A
<Honey Gambino PA-C - Last Filed: 01/24/25 03:41>
*Radiology
Radiology exam reviewed: radiology read reviewed
*Pulse Oximetry
SaO2: 99
Oxygen Mode of Delivery: Room air
Patient hypoxic: no
*EKG
Interpreted by ED Provider?: Yes
EKG Intrepretation Date: 01/23/25
Interpretation: normal
Comparison EKG: no changes
Heart Rate: 68
Rate: normal
Rhythm: sinus
[place]: normal axis
Interval: normal QT interval
QRS Pattern: normal QRS
Ischemia: no ischemia
*Striker Off Interpretation
Rate: normal
Interpretation: normal
Heart Rate: 68
Rhythm: sinus
*Critical Care Note
Total Time (30-74mins, 75-104mins- exclusive of procedures): Not Applicable
ED Attending Note
<Honey Gambino PA-C - Last Filed: 01/24/25 03:41>
-
Portions of this chart may have been created with voice recognition software.� Occasional wrong word or��sound alike� substitutions may have occurred due to the inherent limitations of voice recognition software.
<Romeo Vargas MD - Last Filed: 01/23/25 18:42>
ED Attending Note
Patient seen and examined by attending physician: Yes
I performed the substantive portion of visit, reviewed & personally made and approve the management plan that is documented in note by myself or AG.: Yes
ED Attending Note:
50-year-old female ongoing upper abdominal lower midsternal chest burning. Has been going on for 6 months. Frustrated that she cannot get an endoscopy done. On PPI twice daily. Also on Pepcid. Symptoms are nonexertional. They have been there
most days and are there very frequently. Have been there continuous throughout the day today. No shortness of breath
On exam patient is nontoxic in no distress. Warm and dry feet. Perfusing well. Lungs are clear and equal. Heart regular rate and rhythm no murmur. Abdomen is soft and nontender. Very minimal epigastric tenderness. Warm and dry. Perfusing
well.
EKG is negative. Troponin is negative. Labs are stable.
Impression very likely esophagitis last GERD related symptoms. Highly doubt cardiac with 6 months of very very frequent and continuous nonexertional symptoms. She has had the symptoms all day today continuously with a normal troponin and EKG. She
does have some radiation of the back. Her physician had recommended a CT of her chest. Unlikely to be a dissection however we will rule this out. Warrants close GI follow-up.
Discharge Plan
Departure
Patient Disposition: Home (Routine Discharge)
Date of Disposition: 01/23/25
Time of Disposition: 21:51
Patient with high blood pressure during this ER visit?: Yes
Condition: Good
Discharge Problem:
Chest pain, GERD (gastroesophageal reflux disease)
Instructions: Acid Reflux and GERD in Adults (DC), Chest pain (DC), BLOOD PRESSURE
Prescriptions:
New
sucralfate [Carafate] 1 gram tablet
1 g PO ACHS Qty: 30 0RF
Rx Instructions:
Take 1 tab prior to meals and 1hr prior to bed
No Action
levothyroxine 50 mcg Tablet
50 mcg PO DAILY
pantoprazole 40 mg Tablet,Delayed Release (Dr/Ec)
40 mg PO DAILY
lisinopril 10 mg Tablet
10 mg PO DAILY
ibuprofen 200 mg Tablet
400 mg PO TIDPRN PRN (Reason: mild pain)
budesonide 0.5 mg/2 mL Suspension For Nebulization
0.5 mg INHALATION .R NOON
raloxifene 60 mg Tablet
60 mg PO DAILY
azelastine 137 mcg (0.1 %) Aerosol,[place]
1 spray INTRANASAL HS
albuterol sulfate 90 mcg/actuation Hfa Aerosol Inhaler
1 puff INHALATION R HSPRN PRN (Reason: sob)
fluticasone propionate 50 mcg/actuation [place],Suspension
2 spray INTRANASAL DAILY
fluticasone propionate [Flovent HFA] 110 mcg/actuation Hfa Aerosol Inhaler
1 puff INHALATION R BID
carboxymethylcellulose sodium [Refresh] 1 % Drops, Liquid Gel
1 drp BOTH EYES HS
duloxetine 20 mg capsule,delayed release(DR/EC)
20 mg PO BID
levocetirizine [Xyzal] 5 mg Tablet
5 mg PO HS
omega 8-bqm-dyb-fish oil [Fish Oil] 1,000 mg (120 mg-180 mg) Capsule
1 cap PO DAILY
tobramycin with nebulizer 300 mg/5 mL Solution For Nebulization
300 mg INHALATION R BID
Patient Comments:
09/24/2023, prescribed for 10 days; per pt., her PCP just increased duration by another 10 days starting today.
Calcium + D
1 tab PO DAILY
Patient Comments:
09/24/2023, 315 mg of Calcium and 200 units of vitamin D.
Vitamin C
2 tab PO DAILY
cholecalciferol (vitamin D3)
2 tab PO DAILY
albuterol sulfate 2.5 mg /3 mL (0.083 %) Solution For Nebulization
2.5 mg INHALATION R BIDPRN PRN (Reason: sob)
levofloxacin 750 mg tablet
750 mg PO DAILY Qty: 10 0RF
fidaxomicin [Dificid] 200 mg tablet
200 mg PO Q12H 10 Days Qty: 20 0RF
Referrals:
Hugh Romero MD [Active, Cardiology]
Pamela Blackwood PA-C [Family Provider]
Activity Restrictions/Additional Instructions:
RETURN TO THE EMERGENCY DEPARTMENT ANY FEVER, CHILLS, PERSISTENT/WORSENING ABDOMINAL OR CHEST PAIN, SHORTNESS OF BREATH, SEVERE BACK PAIN, WORSENING CURRENT SYMPTOMS, OR ANY OTHER CONCERNS
- As discussed�the workup in the emergency department showed no acute findings. Your cardiac enzymes were negative. The CT of your chest showed findings
- I suspect that some of your discomfort is secondary to acid reflux/GI source. I did contact our GI front end loader operator to try to arrange an expedited follow-up for you outpatient. You likely require an endoscopy.
- Continue to take your pantoprazole and famotidine as prescribed. I have sent a prescription for Carafate which you can take prior to meals in bed.
- I would follow a low acid diet. Stay well-hydrated.
Monitor your symptoms closely and return to the emergency department with any acute worsening/new symptoms or any other concerns
Interventions
Interventions:
*Risk Screen - Suicide Last Done: 01/23/25 17:44
*General Assessment Last Done: 01/23/25 17:44
*Neglect/Abuse Screening Last Done: 01/23/25 17:44
*ED- Fall Risk Assessment Last Done: 01/23/25 17:44
*ED COVID-19 Vaccine History Last Done: 01/23/25 17:44
*ED Influenza Vaccine History Last Done: 01/23/25 17:44
*Nursing Disposition Last Done: 01/23/25 22:28
ED- Cardiac Assessment Last Done: 01/23/25 17:50
Discharge Date and Time
Discharge Date/Time: 01/23/25 22:05
Print Language: SAO TOMEAN
[2025-01-23] MEDS: MAALOX 40 PO (18:11)
[2025-01-23 19:00] VITALS: BP 133/72
[2025-01-23 19:36] LABS: Lipase 80 U/L (23-300)
[2025-01-23 20:49] VITALS: BP 125/83
[2025-01-23 21:00] VITALS: BP 138/82
[2025-01-23 21:19] LABS: Troponin I < 0.012 ng/ml
[2025-01-23] MEDS: CARAFATE 1 GRAM PO (21:35)
== END 2025-01-23 22:05 | disposition home or self-care (01) ==
LOC: EMR 16:42
PROVIDERS: Physician Assistant; EMERGENCY PHYSICIAN Emergency Medicine; FAMILY PHYSICIAN Physician Assistant
DX: R07.89 Other chest pain (principal); K21.9 Gastro-esophageal reflux disease without esophagitis; J21.9 Acute bronchiolitis, unspecified; I10 Essential (primary) hypertension; Z79.899 Other long term (current) drug therapy
CPT/HCPCS: 99284; 71275; 80053; 83690; 84484; 85025; 93005; Q9967